=== PATIENT | female | born 1995 | race Caucasian/White ===

== ENCOUNTER 2016-08-23 23:02 | Emergency (ER) | payer MEDICAID ==
[2016-08-23 23:11] VITALS: BP 112/74
--- NOTE | 2016-08-23 23:24 | PHYS DOC ---
General Chief Complaint: SKIN RASH/ABSCESS Stated Complaint: RASH Time Seen by MD: 23:04 Source: patient Exam Limitations: no limitations Problems: History of Present Illness Initial Comments Patient is a 21-year-old female comes to the ED complaining of rash. Patient states that the rash has been there for the past 4-5 days. She says initially her skin was burning and itching and then developed blister's. The blisters popped the lesions are scabbed currently she complains of burning itching and pain moderate to severe in intensity and worse with direct irritation relieved by rest and cold. The rash is located at the left thorax nipple level starting midaxillary and extending posteriorly. Patient denies immunocompromise, she denies new medications, she is not a smoker and says she is normally healthy her immunizations are up-to-date. She denies other associated symptoms no fever chills sweats or body aches no headache neck or back pain. Timing/Duration: 1 week, getting worse Severity: severe Modifying Factors: worse with movement, improves with rest Associated Symptoms: rash Allergies: Coded Allergies: No Known Drug Allergies (Unverified , 08/23/16) Past Medical History Medical History: no pertinent history Surgical History: noncontributory Social History Smoker: non-smoker Alcohol: none Drugs: none Review of Systems Constitutional: denies chills, denies fever Respiratory: denies cough, denies shortness of breath Cardiovascular: denies chest pain, denies palpitations Gastrointestinal: denies nausea, denies vomiting Musculoskeletal: denies back pain, denies joint swelling, denies neck pain Skin: see HPI Psychiatric/Neurological: denies headache, denies numbness, denies paresthesia Physical Exam General Appearance: WD/WN, no apparent distress Ear, Nose, Throat: hearing grossly normal, normal ENT inspection, normal pharynx Neck: non-tender, supple Respiratory: normal breath sounds, no respiratory distress Cardiovascular: normal peripheral pulses, regular rate, rhythm Gastrointestinal: non tender, soft Back: no CVA tenderness, no vertebral tenderness Extremities: non-tender, normal inspection Neurologic/Psychiatric: manager of financial planning II-XII nml as tested, no motor/sensory deficits, alert, normal mood/affect, oriented x 3 Skin: rash (dermatomal rash at approximately T6 level on the left, vesicular with scabbing coalescing lesions consistent with shingles) Orders, Labs, Meds I discussed shingles, treatment of shingles, and postherpetic neuralgia. Patient questions were answered she expressed agreement and understanding with the treatment plan. Departure Time of Disposition: 23:22 Disposition: 01 HOME, SELF-CARE Diagnosis: shingles Condition: GOOD Patient Instructions: Shingles, [id number] Additional Instructions: Keep rash clean and dry as able. [id number] ibuprofen for baseline discomfort. Prescription: Valtrex, Zuni 5 mg quantity 30 Tylenol #3 starter pack was dispensed to you. Take 1-2 every 6 hours as needed for severe discomfort. Take medications with food. Take [id number] stool softeners and increase fluids to avoid constipation. Follow-up with your doctor at home Saturday. Return to the ED with new or changing symptoms. DOUGLAS BADILLO DO Aug 23, 2016 23:24
[2016-08-23] MEDS ORDERED: MORPHINE SULFATE 10 MG/ML SYRINGE. IM ONE (23:30)
[2016-08-23] MEDS ORDERED: valACYclovir 500 MG TABLET. PO ONE (23:30)
[2016-08-23] MEDS ORDERED: ONDANSETRON ODT 4 MG TAB.RAPDIS PO ONE (23:30)
[2016-08-23] MEDS ORDERED: ACETAMINOPHEN/CODEINE 300/30MG 4TABLET STARTPACK. PO ONE (23:30)
== END 2016-08-24 00:15 | disposition home or self-care (01) ==
LOC: ER 23:02
DX: B02.9 Zoster without complications (principal)
CPT/HCPCS: 96372; 99284; J2270; Q0162